=== PATIENT | male | born 1945 | race Caucasian/White ===

== ENCOUNTER → 2017-01-16 | Outpatient (CLI) | payer MEDICARE, BC | END | disposition home or self-care (01) | LOC: PCVCCLINIC 14:18 | PROVIDERS: ATTEND Nuclear Medicine Nuclear Cardiology | DX: I25.10 Atherosclerotic heart disease of native coronary artery without angina pectoris (principal); I77.9 Disorder of arteries and arterioles, unspecified; E78.00 Pure hypercholesterolemia, unspecified; I10 Essential (primary) hypertension; E11.9 Type 2 diabetes mellitus without complications; I73.9 Peripheral vascular disease, unspecified; I82.401 Acute embolism and thrombosis of unspecified deep veins of right lower extremity; Z95.828 Presence of other vascular implants and grafts | CPT/HCPCS: 80061; 93005; 93971; G0463 ==

== ENCOUNTER → 2017-06-29 | Outpatient (CLI) | payer MEDICARE, BC ==
--- NOTE | 2017-06-29 11:32 | PCVCIMAG ---
APPROVED REPORT Indications Stenosis Risk Factors Hypertension: Hyperlipidemia Diabetes, Doppler Spectral Velocity Analysis PSV / EDVPSV / EDV ECA (R) 75 / 8 cm/sECA (L) 106 / 9 cm/s dICA (R) 50 / 11 cm/sdICA (L) 57 / 15 cm/s Hilary (R) 52 / 10 cm/smICA (L) 60 / 15 cm/s pICA (R) 38 / 10 cm/spICA (L) 51 / 9 cm/s Bulb (R) 43 / 8 cm/sBulb (L) 42 / 8 cm/s dCCA (R) 48 / 9 cm/sdCCA (L) 44 / 8 cm/s mCCA (R) 60 / 9 cm/smCCA (L) 58 / 9 cm/s Vert (R) 36 / 7 cm/sVert (L) 38 / 8 cm/s ICA/CCA 0.9ICA/CCA 1 Basic Measurements Blood Pressure: Pulses: Right Left RightLeft Brachial(Sitting) 118/60mmHgTemporal Real Time B-Mode Imaging Vert. (R)AntegradeVert. (L)Antegrade Findings The right carotid bulb has moderate calcified plaque. The right proximal internal carotid artery shows <40% stenosis. The right common carotid artery shows <40% stenosis. The right external carotid artery shows no significant stenosis. The left carotid bulb has moderate calcified plaque. The left proximal internal carotid artery shows <40% stenosis. The left common carotid artery shows no significant stenosis. The left external carotid artery shows no significant stenosis. Conclusion 1. Right internal carotid artery stenosis (<40%) 2. Left internal carotid artery stenosis (<40%) 3. Antegrade vertebral flow
--- NOTE | 2017-06-29 13:13 | PCVCIMAG ---
APPROVED REPORT Study performed: 06/29/2017 10:51:34 EXAM: Comprehensive 2D, Doppler, and color-flow Echocardiogram Status: routine BSA: 2.12 HR: 75 bpmBP: 18/60 mmHg Other Information Study Quality: Adequate Indications Pre-Chemo CABG, CARDIOMYOPATHY, RENAL DISEASE, HLP, DIABETES 2D Dimensions IVSd: 9.16 (7-11mm)LVOT Diam: 22.40 (18-24mm) LVDd: 68.42 mm PWd: 8.38 (7-11mm)Ascending Ao: 35.89 (22-36mm) LVDs: 56.80 (25-40mm) Left Atrium: 52.41 (27-40mm) Aortic Root: 35.28 mm LV Single Plane 4CH: 20.43 % LV Single Plane 2CH: 18.09 %Carbajal's LVEF: 19.26 % Biplane EF: 25.0 % Volumes Left Atrial Volume (Systole) Single Plane 4CH: 57.28 mLSingle Plane 2CH: 54.74 mL Aortic Valve AoV Peak Vincent.: 1.74 m/s AO Peak Gr.: 12.05 mmHgLVOT Max P.27 mmHg LVOT Max V: 0.90 m/s SAMANTHA Vmax: 2.05 cm2 Mitral Valve E/A Ratio: 2.7 MV Decel. Time: 152.93 ms MV E Max Vincent.: 1.01 m/s MV A Vincent.: 0.37 m/s Pulmonary Valve PV Peak Gr.: 1.35 mmHg Tricuspid Valve TR Peak Vincent.: 3.32 m/s TR Peak Gr.: 44.18 mmHg Left Ventricle The left ventricle is normal size. Global dysfunction There is normal left ventricular wall thickness. Left ventricular systolic function is severely decreased. LVEF is 25-30%. Grade III diastolic dysfunction Right Ventricle The right ventricle is normal size. The right ventricular systolic function is normal. Atria The left atrium size is normal. The right atrium size is normal. Aortic Valve The aortic valve is calcified, trileaflet, non-stenotic No aortic regurgitation is present. There is no aortic valvular stenosis. Mitral Valve Moderate mitral annular calcification Moderate mitral regurgitation. No evidence of mitral valve stenosis. Tricuspid Valve The tricuspid valve is normal in structure. Moderate to severe tricuspid regurgitation. Pulmonary artery pressure is 50mmHg Pulmonic Valve The pulmonary valve is normal in structure. Mild pulmonic regurgitation. Great Vessels The aortic root is normal in size. IVC is normal in size and collapses with >50% inspiration Pericardium There is no pericardial effusion. <Conclusion> Left ventricular systolic function is severely decreased. LVEF is 25-30%. The aortic valve is calcified, trileaflet, non-stenotic. No aortic regurgitation Moderate mitral annular calcification Moderate mitral regurgitation. Pulmonary artery pressure of 50mmHg There is no pericardial effusion.
== END | disposition home or self-care (01) ==
LOC: PCVCIMAG 10:06
PROVIDERS: ATTEND Internal Medicine
DX: I25.10 Atherosclerotic heart disease of native coronary artery without angina pectoris (principal); I25.5 Ischemic cardiomyopathy; I73.9 Peripheral vascular disease, unspecified; I65.23 Occlusion and stenosis of bilateral carotid arteries; I12.0 Hypertensive chronic kidney disease with stage 5 chronic kidney disease or end stage renal disease; E11.22 Type 2 diabetes mellitus with diabetic chronic kidney disease; N18.6 End stage renal disease; I08.1 Rheumatic disorders of both mitral and tricuspid valves; Z86.718 Personal history of other venous thrombosis and embolism; Z90.49 Acquired absence of other specified parts of digestive tract; Z95.5 Presence of coronary angioplasty implant and graft; Z95.1 Presence of aortocoronary bypass graft; Z79.82 Long term (current) use of aspirin; Z79.4 Long term (current) use of insulin; Z87.891 Personal history of nicotine dependence
CPT/HCPCS: 93306; 93880; G0463